=== PATIENT | female | born 1960 | race Caucasian/White ===

== ENCOUNTER 2016-12-30 16:42 | Emergency (ER) | payer OTHER ==
[~2016-12-30] VITALS: Ht 162.6 cm; Wt 126.1 kg
[~2016-12-30 16:42] MED LIST: CALCTAB5 PO; CLR10 PO; CLX20 PO; DPPI400 IM; MULT-506 PO; VALA1TAB PO
[2016-12-30 16:59] VITALS: TEMP 36.6; Ht 162.6 cm; Wt 126.1 kg
[2016-12-30] MEDS ORDERED: SODIUM CHLORIDE 0.9% 1000ML 500 ML IV STA (17:46)
[2016-12-30] MEDS ORDERED: OPTIRAY 320 IV PRN (18:00)
--- NOTE | 2016-12-30 18:01 | EMERGENCY ROOM VISIT NOTE ---
History Report prepared by Kaitlin: Jojo Chan Under the Supervision of: Dr. Madi Delaney M.D. First contact with patient: 17:37 Chief Complaint: SHORTNESS OF BREATH Stated Complaint: SHORTNESS OF BREATH- PHYSICIAN REFERRED Nursing Triage Summary: Pt presents with c/o sob. Went to PCP last night, had bloodwork and d-dimer was elevated. Pt sent for CT. SOB with exertion. Denies cp. Pt does have pain between shoulder blades. Denies lightheadedness. Sx x 3 weeks. History of Present Illness The patient is a 56 year old female who presents to the Emergency Room with complaints of persistent shortness of breath that began one month ago. She currently rates her discomfort as a 4/10 in severity. The patient states that she was to her PCP's office on December 07 and discussed her persistent shortness of breath with light exertion. She states that she additionally had pain between her shoulder blades at that time. The patient states that during this visit she was given an antibiotic for her double ear infection, but no testing was done for her shortness of breath. She states that she went for a follow up due to her ear infection and states that she mentioned her shortness of breath with light exertion. The patient states that she still has slight pain behind her shoulder blades today. Per records, the patient had a normal chest x-ray done today and had an elevated d-dimer test ran yesterday. The patient states that she had a bad cough/cold in October, but denies any current cough. She notes that she has had a recent weight gain of 10 lbs in the past month and notes swelling to her bilateral lower extremities. The patient denies any personal or family history of blood clots. She denies any recent long trips. The patient denies any family history of heart disease, but notes that both her and her father have a rare blood disease. She states that her last stress test was one year ago. The patient notes that she has thyroid nodules that she has follow up on regularly. She states that she does not exercise often. Source of History: patient Onset: one month ago Position: other (global) Symptom Intensity: 4/10 Quality: other (shortness of breath) Timing: other (persistent) Note: Associated Symptoms: bilateral leg swelling, weight gain of 10 lbs in 1 month, pain between shoulder blades. Review of Systems See HPI for pertinent positives & negatives. A total of 10 systems reviewed and were otherwise negative. Past Medical & Surgical No pertinent history Family History No pertinent family history stated Social History Smoking Status: Never Smoker Marital Status: Housing Status: lives with significant other Occupation Status: employed Current/Historical Medications Scheduled Atorvastatin (Lipitor), 20 MG PO QPM Calcium (Caltrate), 600 MG PO BID Cholecalciferol (Vitamin D), 1,000 MG PO DAILY Docusate Sodium (Stool Softener), 100 MG PO DAILY Fiber (Fiber Complete), 1 TAB PO DAILY Fish Oil (Sagle-3), 1 CAP PO QAM Viyeotmwsea-Lztnhndrnge-Uxr C- (Glucosamine Chondroitin), 1 CAP PO QPM Loratadine (Claritin), 10 MG PO DAILY Multivitamin (Multivitamin), 1 TAB PO DAILY Valacyclovir (Valtrex), 1,000 MG PO DIRECTED Venlafaxine Hcl (Effexor), 75 MG PO DAILY [Amlodipine], 1 TAB PO DAILY Allergies Coded Allergies: No Known Allergies (Verified , 12/30/16) Physical Exam Vital Signs Date Time Temp Pulse Resp B/P Pulse Ox O2 Delivery O2 Flow Rate FiO2 12/30/16 19:54 75 18 164/93 98 Room Air 12/30/16 19:00 82 18 173/79 97 Room Air 12/30/16 16:59 94 Room Air 12/30/16 16:59 36.6 75 18 171/117 94 Room Air Physical Exam GENERAL: Patient is in no acute distress. HEENT: No acute trauma, normocephalic atraumatic, mucous membranes moist, no nasal congestion, no scleral icterus. NECK: No stridor, no adenopathy, no meningismus, trachea is midline. LUNGS: Clear to auscultation bilaterally, no wheeze, no rhonchi, breath sounds equal. HEART: Without murmurs gallops or rubs, regular rate and rhythm. ABDOMEN: Soft, nontender, bowel sounds positive, no hernias, no peritonitis. EXTREMITIES: Mild bilateral pedal edema. No cyanosis or edema, full range of motion of all the joints without pain or difficulty, no signs for acute trauma. NEUROLOGIC: Oriented x 3, no acute motor or sensory deficits, no focal weakness. SKIN: No rash, no jaundice, no diaphoresis. Medical Decision & Procedures ER Provider Diagnostic Interpretation: X ray results and stated below per my interpretation and radiologist interpretation. Other radiology results and stated below per my review and radiologist interpretation: ULTRASOUND BILATERAL LOWER EXTREMITY VENOUS CLINICAL HISTORY: Lower extremity edema. COMPARISON STUDY: No priors. TECHNIQUE: Real-time, grayscale, and color Doppler sonography of the deep veins of the right and left lower extremity was performed from the inguinal crease to the calf. Compression and augmentation were utilized. FINDINGS: There is no sonographic evidence of deep venous thrombosis identified in the right or left lower extremity. The common femoral, superficial femoral, and popliteal veins are patent and normally compressible bilaterally. The greater saphenous vein and the profunda femoris vein at the junction with the common femoral vein are clear in both legs. The visualized calf veins are patent bilaterally. IMPRESSION: There is no sonographic evidence of deep venous thrombosis identified in the right or left lower extremity. Electronically signed by: Madi López M.D. 12/30/2016 6:50 PM Dictated Date/Time: 12/30/2016 6:[address] ANGIOGRAM OF THE CHEST CLINICAL HISTORY: Dyspnea. Atypical chest pain. COMPARISON STUDY: Thyroid ultrasound from outside institution dated 06/13/2014. TECHNIQUE: Following the IV administration of 97 cc of Optiray 320, CT angiogram of the chest was performed from the upper abdomen to the thoracic inlet utilizing the pulmonary embolus protocol. Images are reviewed in the axial, sagittal, and coronal planes. 3-D MIPS images are created and assessed. IV contrast was administered without complication. Note that interpretation is suboptimal without plain film correlate. CT DOSE: 886.48 mGy.cm FINDINGS: Thyroid: The thyroid gland appears enlarged and multinodular. This extends in the superior mediastinum. Nodules measure up to 11 mm. Thoracic aorta: The thoracic aorta is normal in caliber and demonstrates standard 3-vessel arch anatomy. No dissection is seen. Pulmonary vasculature: The pulmonary trunk is normal in caliber. There are no filling defects identified in main, lobar, or segmental pulmonary branches to suggest pulmonary embolus. Heart: The heart is normal in size and configuration, and without pericardial effusion. Fluid is noted within the superior pericardial recess. Lungs and pleural spaces: Foci of linear atelectasis are seen at the left lung base. No airspace consolidation or pleural effusion is identified. The trachea and central airways Are clear. Mediastinum: There is no mediastinal lymphadenopathy. Jackelin: Clear. Axillae: There is no axillary lymphadenopathy. Upper abdomen: A 13 mm cyst is noted in the left lobe of the liver. The liver appears steatotic. A tiny hiatal hernia is identified. Skeletal structures: No lytic or blastic bony lesions are seen. IMPRESSION: 1. There is no evidence of pulmonary embolus in the main, lobar, or segmental pulmonary arteries. 2. There is no airspace consolidation or pleural effusion. 3. Hepatic steatosis. 4. Findings are consistent with multinodular goiter. This was better assessed on the outside thyroid ultrasound dated 06/13/2014. Electronically signed by: Madi López M.D. 12/30/2016 7:24 PM Dictated Date/Time: 12/30/2016 7:18 PM Laboratory Results 12/30/16 18:05 Red Blood Count 4.81, Mean Corpuscular Volume 88.8, Mean Corpuscular Hemoglobin 30.6, Mean Corpuscular Hemoglobin Concent 34.4, Mean Platelet Volume 10.1, Neutrophils (%) (Auto) 51.6, Lymphocytes (%) (Auto) 39.1, Monocytes (%) (Auto) 8.1, Eosinophils (%) (Auto) 0.9, Basophils (%) (Auto) 0.1, Neutrophils # (Auto) 4.20, Lymphocytes # (Auto) 3.19, Monocytes # (Auto) 0.66, Eosinophils # (Auto) 0.07, Basophils # (Auto) 0.01 12/30/16 18:05 Test 12/30/16 18:05 White Blood Count 8.15 K/uL (4.8-10.8) Red Blood Count 4.81 M/uL (4.2-5.4) Hemoglobin 14.7 g/dL (12.0-16.0) Hematocrit 42.7 % (37-47) Mean Corpuscular Volume 88.8 fL (80-100) Mean Corpuscular Hemoglobin 30.6 pg (25-34) Mean Corpuscular Hemoglobin Concent 34.4 g/dl (32-36) Platelet Count 239 K/uL (130-400) Mean Platelet Volume 10.1 fL (7.4-10.4) Neutrophils (%) (Auto) 51.6 % Lymphocytes (%) (Auto) 39.1 % Monocytes (%) (Auto) 8.1 % Eosinophils (%) (Auto) 0.9 % Basophils (%) (Auto) 0.1 % Neutrophils # (Auto) 4.20 K/uL (1.4-6.5) Lymphocytes # (Auto) 3.19 K/uL (1.2-3.4) Monocytes # (Auto) 0.66 K/uL (0.11-0.59) Eosinophils # (Auto) 0.07 K/uL (0-0.5) Basophils # (Auto) 0.01 K/uL (0-0.2) RDW Standard Deviation 41.2 fL (36.4-46.3) RDW Coefficient of Variation 12.8 % (11.5-14.5) Immature Granulocyte % (Auto) 0.2 % Immature Granulocyte # (Auto) 0.02 K/uL (0.00-0.02) Anion Gap 10.0 mmol/L (3-11) Est Creatinine Clear Calc Drug Dose 97.2 ml/min Estimated GFR () 87.5 Estimated GFR (Non- 75.5 BUN/Creatinine Ratio 19.3 (10-20) Calcium Level 9.3 mg/dl (8.5-10.1) Magnesium Level 2.3 mg/dl (1.8-2.4) Total Bilirubin 0.4 mg/dl (0.2-1) Aspartate Amino Transf (AST/SGOT) 22 U/L (15-37) Alanine Aminotransferase (ALT/SGPT) 37 U/L (12-78) Alkaline Phosphatase 102 U/L (45-117) Troponin I < 0.015 ng/ml (0-0.045) Total Protein 7.9 gm/dl (6.4-8.2) Albumin 3.9 gm/dl (3.4-5.0) Globulin 4.0 gm/dl (2.5-4.0) Albumin/Globulin Ratio 1.0 (0.9-2) Thyroid Stimulating Hormone (TSH) 1.040 uIu/ml (0.300-4.500) Free Thyroxine 0.92 ng/dl (0.80-1.60) Laboratory results reviewed by me. Medications Administered Medications (Trade) Dose Ordered Sig/Mayo Route Start Time Stop Time Status Last Admin Dose Admin Sodium Chloride (Nss 1000ml) 500 ml @ 999 mls/hr Q31M STAT IV 12/30/16 17:46 12/30/16 18:16 DC 12/30/16 18:11 999 MLS/HR ECG Indication: SOB/dyspnea Rate (beats per minute): 96 Rhythm: normal sinus Findings: no acute ischemic change, no ectopy, other (LVH) ED Course 1737: The patient was evaluated in room A2. A complete history and physical exam was performed. 1745: Ordered Sodium Chloride 500 ml @ 999 mls/hr IV. 1947: Reevaluated the patient. Discussed results and discharge instructions: She verbalized understanding and agreement. The patient is ready for discharge. Medical Decision The patient is a 56 year old female who presents to the ED with complaints of shortness of breath. Differential diagnoses considered include anemia, thyroid disorder, electrolyte imbalance, cardiac ischemia, angina, weight gain, debilitation, PE, DVT. There is no leukocytosis or concerning anemia. No significant electrolyte abnormality, kidney failure or hepatitis. The patient appears to be in a euthyroid state. EKG shows a sinus rhythm, there is no acute ischemia. Cardiac enzyme testing times one is not consistent with acute cardiac injury. Bilateral lower extremity ultrasound does not show any evidence for DVT. Chest CT shows no pneumonia, PE or aortic dissection. The patient presents for testing because of an elevated d-dimer. Her workup is benign. She is being discharged to follow with her doctors office. She may need a stress test in the near future. The cause for her shortness of breath is not clear. Impression Primary Impression: SOB (shortness of breath) Additional Impression: Elevated d-dimer Scribe Attestation The scribe's documentation has been prepared under my direction and personally reviewed by me in its entirety. I confirm that the note above accurately reflects all work, treatment, procedures, and medical decision making performed by me. Departure Information Dispostion Home / Self-Care Referrals Torie Batista (PCP) Forms HOME CARE DOCUMENTATION FORM, IMPORTANT VISIT INFORMATION Patient Instructions My [facility] Additional Instructions no clot by imaging today follow with braden bill--stress test may be needed return for worsening symptoms lab testing today was all ok Problem Qualifiers
[2016-12-30] MEDS ORDERED: EFF75 PO (18:05)
[2016-12-30] MEDS ORDERED: ATOR-22 PO (18:05)
[2016-12-30] MEDS ORDERED: AMLODIPINE PO (18:05)
[2016-12-30] MEDS ORDERED: DOCU100C PO (18:07)
[2016-12-30] MEDS ORDERED: FIBETAB PO (18:07)
[2016-12-30] MEDS ORDERED: GLUC1CAP35 PO (18:07)
[2016-12-30] MEDS ORDERED: OMEG10007 PO (18:07)
[2016-12-30] MEDS ORDERED: CHOL100010 PO (18:07)
[2016-12-30 18:24] LABS: BASO % 0.1 %; BASO ABS # 0.01 K/uL (0-0.2); COMPLETE YES; EOS % 0.9 %; HEMATOCRIT 42.7 % (37-47); IG% 0.2 %; LYMPH % 39.1 %; LYMPH ABS # 3.19 K/uL (1.2-3.4); MEAN CELL VOLUME 88.8 fL (80-100); MEAN CORPUSCULAR HEMOGLOBIN 30.6 pg (25-34); MEAN CORPUSCULAR HGB CONC 34.4 g/dl (32-36); MEAN PLATELET VOLUME 10.1 fL (7.4-10.4); MONO % 8.1 %; NEUT % 51.6 %; PLATELET COUNT 239 K/uL (130-400); RED BLOOD COUNT 4.81 M/uL (4.2-5.4); WHITE BLOOD COUNT 8.15 K/uL (4.8-10.8)
[2016-12-30 18:41] LABS: ALT/SGPT 37 U/L (12-78); BLOOD UREA NITROGEN 17 mg/dl (7-18); BUN/CREATININE RATIO 19.3 (10-20); CALCIUM 9.3 mg/dl (8.5-10.1); CARBON DIOXIDE 25 mmol/L (21-32); CHLORIDE 108 mmol/L (98-107); CREATININE 0.87 mg/dl (0.60-1.20); GLUCOSE 90 mg/dl (70-99); MAGNESIUM 2.3 mg/dl (1.8-2.4); POTASSIUM 3.6 mmol/L (3.5-5.1); SODIUM 143 mmol/L (136-145)
--- NOTE | 2016-12-30 18:51 | DIAGNOSTIC IMAGING REPORT ---
ULTRASOUND BILATERAL LOWER EXTREMITY VENOUS CLINICAL HISTORY: Lower extremity edema. COMPARISON STUDY: No priors. TECHNIQUE: Real-time, grayscale, and color Doppler sonography of the deep veins of the right and left lower extremity was performed from the inguinal crease to the calf. Compression and augmentation were utilized. FINDINGS: There is no sonographic evidence of deep venous thrombosis identified in the right or left lower extremity. The common femoral, superficial femoral, and popliteal veins are patent and normally compressible bilaterally. The greater saphenous vein and the profunda femoris vein at the junction with the common femoral vein are clear in both legs. The visualized calf veins are patent bilaterally. IMPRESSION: There is no sonographic evidence of deep venous thrombosis identified in the right or left lower extremity. Electronically signed by: Madi López M.D. 12/30/2016 6:50 PM Dictated Date/Time: 12/30/2016 6:50 PM
[2016-12-30 18:52] LABS: ALKALINE PHOSPHATASE 102 U/L (45-117); AST/SGOT 22 U/L (15-37)
--- NOTE | 2016-12-30 19:25 | DIAGNOSTIC IMAGING REPORT ---
CT ANGIOGRAM OF THE CHEST CLINICAL HISTORY: Dyspnea. Atypical chest pain. COMPARISON STUDY: Thyroid ultrasound from outside institution dated 06/13/2014. TECHNIQUE: Following the IV administration of 97 cc of Optiray 320, CT angiogram of the chest was performed from the upper abdomen to the thoracic inlet utilizing the pulmonary embolus protocol. Images are reviewed in the axial, sagittal, and coronal planes. 3-D MIPS images are created and assessed. IV contrast was administered without complication. Note that interpretation is suboptimal without plain film correlate. CT DOSE: 886.48 mGy.cm FINDINGS: Thyroid: The thyroid gland appears enlarged and multinodular. This extends in the superior mediastinum. Nodules measure up to 11 mm. Thoracic aorta: The thoracic aorta is normal in caliber and demonstrates standard 3-vessel arch anatomy. No dissection is seen. Pulmonary vasculature: The pulmonary trunk is normal in caliber. There are no filling defects identified in main, lobar, or segmental pulmonary branches to suggest pulmonary embolus. Heart: The heart is normal in size and configuration, and without pericardial effusion. Fluid is noted within the superior pericardial recess. Lungs and pleural spaces: Foci of linear atelectasis are seen at the left lung base. No airspace consolidation or pleural effusion is identified. The trachea and central airways Are clear. Mediastinum: There is no mediastinal lymphadenopathy. Jackelin: Clear. Axillae: There is no axillary lymphadenopathy. Upper abdomen: A 13 mm cyst is noted in the left lobe of the liver. The liver appears steatotic. A tiny hiatal hernia is identified. Skeletal structures: No lytic or blastic bony lesions are seen. IMPRESSION: 1. There is no evidence of pulmonary embolus in the main, lobar, or segmental pulmonary arteries. 2. There is no airspace consolidation or pleural effusion. 3. Hepatic steatosis. 4. Findings are consistent with multinodular goiter. This was better assessed on the outside thyroid ultrasound dated 06/13/2014. Electronically signed by: Madi López M.D. 12/30/2016 7:24 PM Dictated Date/Time: 12/30/2016 7:18 PM
[2016-12-30 19:54] VITALS: BP 164/93; PULSE 75; O2SAT 98
== END 2016-12-30 19:58 | disposition home or self-care (01) ==
LOC: C.EDB 16:44 → C.EDA 19:58
DX: R06.02 Shortness of breath (principal); R79.89 Other specified abnormal findings of blood chemistry